=== PATIENT | male | born 2000 | race Caucasian/White ===

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

== ENCOUNTER 2024-04-22 17:55 | Emergency (ER) | payer OTHER ==
[~2024-04-22] VITALS: Ht 175.3 cm; Wt 122.6 kg
[~2024-04-22 17:55] MED LIST: CONCERTA18 MG PO; METHYLPHENIDATE27 MG PO
--- OUTSIDE RECORDS SUMMARY | 2024-04-22 17:56 | XMS ---
PreManage Notification: ISABEL RIVAS Security Open Developer Operator Events No recent Security Events currently on file CRITERIA MET - [facility] PROVIDERS -, [facility] Dentist: Warehouse Director [facility] PHONE: [phone] -Daniel- Dentist: Warehouse Director [facility] PHONE: [phone] Shayy has no Care Guidelines for this patient. Kay VISIT COUNT (12 MO.) 2 [facility] TOTAL 2 NOTE: Visits indicate total known visits. ED/UCC VISIT TRACKING (12 MO.) 04/22/2024 17:55 [facility] [place] TYPE: Emergency COMPLAINT: - BACK PAIN 11/21/2023 17:15 [facility] [place] TYPE: Emergency COMPLAINT: - R EYE SWOLLEN/IRRITATED DIAGNOSES: - Allergy status to penicillin - Allergy, unspecified, initial encounter - Other assisted (current) drug therapy - Other specified disorders of eye and adnexa - Striking against or struck by other objects, initial encounter - Unspecified disorder of conjunctiva INPATIENT VISIT TRACKING (12 MO.) No inpatient visits to display in this time frame [email or web address]
[2024-04-22] MEDS ORDERED: CYCLOBENZAPRINE10 MG PO (20:29)
[2024-04-22] MEDS ORDERED: methylPREDNISolone 4 MG HOME.PACK PO ONE (20:30)
[2024-04-22] MEDS ORDERED: CYCLOBENZAPRINE HCL 10 MG HOME.PACK PO ONE (20:30)
[2024-04-22 20:40] VITALS: BP 134/96
== END 2024-04-22 20:40 | disposition home or self-care (01) ==
LOC: ED 17:55
DX: M54.50 Low back pain, unspecified (principal); Z79.899 Other long term (current) drug therapy; Z88.0 Allergy status to penicillin
CPT/HCPCS: 99283